=== PATIENT | female | born 1990 | race Caucasian/White ===

== ENCOUNTER 2020-10-11 22:06 | Emergency (ER) | payer OTHER, SELFPAY ==
[2020-10-11] VITALS (11 sets, daily range): BP systolic 145–177; BP diastolic 95–109; PULSE 88–100; RESP 14–22; TEMP 36.6; O2SAT 100
--- NOTE | ~2020-10-11 | XR_ITS ---
XR chest 1V portable DATE: 10/11/2020 22:38 INDICATION: Chest tightness. Hypertension. TECHNIQUE: Portable AP chest on 10/11/2020 at 2237 hours COMPARISON: None FINDINGS: Normal heart size. No hilar or mediastinal enlargement. No pulmonary infiltrate or consolid ation, pleural effusion or pulmonary vascular congestion or pneumothorax. IMPRESSION: No active cardiopulmonary disease Reviewed, dictated and finalized at location A.
--- NOTE | 2020-10-11 22:13 | ECG_ITS ---
Measurements Intervals [place] Rate: 92 P: 43 W[place]: 154 QRS: 1 QRSD: 81 T: 26 QT: 344 QTc: 426 Interpretive Statements SINUS RHYTHM EARLY PRECORDIAL R/S TRANSITION VOLTAGE CRITERIA FOR LVH INFERIOR INFARCT, AGE INDETERMINATE ABNORMAL ECG Electronically Signed On 10-12-2020 6:46:13 CDT by Maninder Salvador D.O.
[2020-10-11 22:29] LABS: Basophils Absolute Auto 0.1 K/mm3 (0.0-0.1); Basophils Percent Auto 0.7 % (0.2-1.2); Eosinophils Absolute Auto 0.2 K/mm3 (0-0.3); Eosinophils Percent Auto 2.3 % (0-4.4); Hematocrit 41.5 % (37.0-47.0); Hemoglobin 13.5 g/dL (12.0-15.0); Immature Granulocyte Absolute 0.02 K/mm3 (0.00-0.031); Immature Granulocyte Percent A 0.2 % (0-0.5); Lymphocytes Absolute Auto 3.68 K/mm3 (0.9-3.2); Lymphocytes Percent Auto 39.2 % (18.3-44.2); Mean Corpuscular HGB Conc 32.5 g/dl (32-36); Mean Corpuscular Hemoglobin 30.1 pg (26-34); Mean Corpuscular Volume 92.4 fl (80-100); Mean Platelet Volume 9.2 fl (7.4-10.4); Monocytes Absolute Auto 0.6 K/mm3 (0.1-0.6); Monocytes Percent Auto 6.3 % (2.6-8.5); Neutrophils Absolute Auto 4.8 K/mm3 (1.3-6.7); Neutrophils Percent Auto 51.3 % (45.5-73.1); Platelet Count Result 297 k/mm3 (150-375); Red Blood Count 4.49 M/mm3 (4.2-5.4); Red Cell Distribution Width 12.4 % (11.5-14.5); White Blood Count 9.4 K/mm3 (4.5-10.0)
[2020-10-11 22:40] LABS: Alanine Aminotransferase 13 U/L (4-35); Albumin Level 4.6 g/dL (3.5-5.1); Alkaline Phosphatase 46 U/L (38-126); Anion Gap 11 mmol/L (8-16); Aspartate Amino Transferase 20 U/L (14-36); Bilirubin,Total 0.3 mg/dL (0.2-1.3); Blood Urea Nitrogen 12 mg/dL (7-17); Calcium 9.9 mg/dL (8.4-10.2); Carbon Dioxide 25 mmol/L (22-30); Chloride 103 mmol/L (98-107); Estimated CRCL calculation 94 ml/min; Estimated Glomerular Filt Rate > 60; Glucose 100 mg/dL (65-105); Potassium 3.6 mmol/L (3.4-5.0); Sodium 139 mmol/L (137-145)
[2020-10-11 22:50] LABS: Add Urine Microscopic? NO; Appearance Urine Clear (Clear); Bilirubin Urine Negative (Negative); Blood Urine Negative (Negative); Color Urine Colorless (Yellow); Glucose Urine UA Negative (Negative); Ketones Urine Negative (Negative); Leukocyte Esterase Ur Negative LEU/UL (Negative); Nitrate Urine Negative (Negative); Protein Urine Negative (Negative); Urobilinogen Urine Negative mg/dL (<2.0)
[2020-10-11 22:57] LABS: Specific Grav Ur 1.004 (1.001-1.035)
[2020-10-12] VITALS: PULSE 87; RESP 23
[2020-10-12 00:01] VITALS: BP 152/106; PULSE 84; RESP 18
[2020-10-12 00:15] VITALS: PULSE 89; RESP 20
--- NOTE | 2020-10-12 00:24 | ED.GENADULT ---
HPI - General Adult General Chief complaint: Chest Pain Stated complaint: high blood pressure/ chest tightness Time Seen by Provider: 10/11/20 22:08 History of Present Illness HPI narrative: Patient 29-year-old female presents to emergency department with chief complaint of hypertension. Patient reports that she has been noticing that her blood pressures been running on the high side she also notes she said some tightness in her chest and is also been under more stress. The patient states she is taken her blood pressure several times noticed that her diastolic is been above 100. Patient states that she has had some tightness in her chest with this and is concerned about this the patient states that she has family history for hypertension and is currently not on any medication and does not have an active primary care physician. Related Data Allergies Allergy/AdvReac Type Severity Reaction Status Date / Time sulfamethoxazole Allergy Unknown Verified 02/29/16 20:00 trimethoprim Allergy Unknown Verified 02/29/16 20:00 Review of Systems Review of Systems: Narrative: A 10 system review of systems was completed on the patient and is negative except for what is stated in the HPI. Nursing and ancillary documentation was reviewed. [facility] Social History Social History Gender identity (if verbalized by the patient): Female Comments Family history significant for hypertension Social history patient denies illicit drug use Exam Narrative: Exam Narrative: GENERAL: Well-appearing, well-nourished, and in no acute distress. HEAD: Normocephalic, atraumatic. EYES: PERRLA and EOMI. ENT: Nares clear, no rhinorrhea or epistaxis. Mucous membranes moist. NECK: Supple. CHEST: Clear to auscultation. No respiratory distress. HEART: Regular rate and rhythm. No murmur heard. Normal peripheral pulses. ABDOMEN: Soft, nontender, nondistended, normal active bowel sounds. EXTREMITIES: Normal range of motion. No edema. SKIN: Warm, dry, no rash. NEURO: No focal deficits. Alert and oriented x3. PSYCH: Normal mood and affect. Course Course Emergency Course: EKG is sinus rhythm rate of [address] elevation or ST depression Vital Signs Vital signs: Vital Signs Temperature 36.6 C 10/11/20 22:20 Pulse Rate 97 10/11/20 22:20 Respiratory Rate 18 10/11/20 22:20 Blood Pressure 177/109 H 10/11/20 22:20 Pulse Oximetry 100 10/11/20 22:20 Temperature 36.6 C 10/11/20 22:20 Pulse Rate 91 10/11/20 23:01 Respiratory Rate 17 10/11/20 23:01 Blood Pressure 161/95 H 10/11/20 23:01 Pulse Oximetry 100 10/11/20 22:20 Medical Decision Making Vital Signs Vital Signs: Vital Signs Temperature 36.6 C 10/11/20 22:20 Pulse Rate 97 10/11/20 22:20 Respiratory Rate 18 10/11/20 22:20 Blood Pressure 177/109 H 10/11/20 22:20 Pulse Oximetry 100 10/11/20 22:20 Temperature 36.6 C 10/11/20 22:20 Pulse Rate 91 10/11/20 23:01 Respiratory Rate 17 10/11/20 23:01 Blood Pressure 161/95 H 10/11/20 23:01 Pulse Oximetry 100 10/11/20 22:20 Lab Data Result diagrams: 10/11/20 22:23 10/11/20 22:23 Labs: Lab Results 10/11/20 10/11/20 10/11/20 Range/Units 22:23 22:23 22:39 WBC 9.4 (4.5-10.0) K/mm3 RBC 4.49 (4.2-5.4) M/mm3 Hgb 13.5 (12.0-15.0) g/dL Hct 41.5 (37.0-47.0) % MCV 92.4 (80-100) fl MCH 30.1 (26-34) pg MCHC 32.5 (32-36) g/dl RDW 12.4 (11.5-14.5) % Plt Count 297 (150-375) k/mm3 MPV 9.2 (7.4-10.4) fl Immature Gran % (Auto) 0.2 (0-0.5) % Neut % (Auto) 51.3 (45.5-73.1) % Lymph % (Auto) 39.2 (18.3-44.2) % [place] % (Auto) 6.3 (2.6-8.5) % Eos % (Auto) 2.3 (0-4.4) % Baso % (Auto) 0.7 (0.2-1.2) % Lymph # (Auto) 3.68 H (0.9-3.2) K/mm3 [place] # (Auto) 0.6 (0.1-0.6) K/mm3 Eos # (Auto) 0.2 (0-0.3) K/mm3 Baso # (Auto) 0.1 (0.
[2020-10-12] MEDS: lisinopriL 10 MG TABLET PO (00:32)
[2020-10-12 00:43] VITALS: BP 158/98; PULSE 90; RESP 18; O2SAT 99
== END 2020-10-12 00:45 | disposition home or self-care (01) ==
PROVIDERS: Emergency Provider Emergency Medicine
DX: I10 Essential (primary) hypertension (principal); R07.89 Other chest pain
CPT/HCPCS: 36415; 71045; 80053; 81003; 81025; 85025; 93005; 99283; A9270